=== PATIENT | male | born 1975 | race Caucasian/White ===

== ENCOUNTER 2020-11-28 11:54 | Emergency (ER) | payer SELFPAY ==
[2020-11-28] MEDS ORDERED: Ketorolac Tromethamine 30 MG/ML VIAL ONE (12:15)
[2020-11-28] MEDS ORDERED: Acetaminophen 500 MG TAB ONE (12:15)
== END 2020-11-28 13:04 | disposition home or self-care (01) ==
LOC: ERS 11:54
DX: M54.5 Low back pain (principal); G89.29 Other chronic pain; Z87.891 Personal history of nicotine dependence
CPT/HCPCS: 72100; 96372; J1885